=== PATIENT | female | born 1975 | race Caucasian/White ===

== ENCOUNTER → 2020-05-16 | Outpatient (CLI) | payer BC ==
[~2020-05-16] MED LIST: FLUO20CA23 PO; FURO-92 PO; GABA300C10 PO; GADOTERATE 7.5 MMOL/15 ML VIAL ONE; HYDR-1067; HYDR-3248 PO; HYDR60TA PO; LEVO125T5 PO; OMEP-110 PO; PANT40TA3 PO; POTA10PI2 PO; POTA10TA31 PO; PROP160C PO; TIZA4CAP PO; TRAZ-175 PO; VENL150C PO; VERA120T13 PO; [UNRECOGNIZED DRUG - OTHER]; cymbalta; flexeril; levothyroxine; propanolol; protonix
== END | disposition home or self-care (01) ==
LOC: RAD 13:42
PROVIDERS: ATTEND Physician Assistant
DX: M16.11 Unilateral primary osteoarthritis, right hip (principal); M51.27 Other intervertebral disc displacement, lumbosacral region; M48.07 Spinal stenosis, lumbosacral region
CPT/HCPCS: 72158; 73721; A9575

== ENCOUNTER 2021-01-05 16:06 | Emergency (ER) | payer BC ==
[~2021-01-05] VITALS: Ht 175.3 cm; Wt 129.4 kg
[2021-01-05 16:13] VITALS: BP 131/80
== END 2021-01-05 17:29 | disposition home or self-care (01) ==
LOC: ED 16:33
DX: L02.212 Cutaneous abscess of back [any part, except buttock and flank] (principal); I10 Essential (primary) hypertension; E03.9 Hypothyroidism, unspecified
CPT/HCPCS: 10060; 96372; 99283; J1885